=== PATIENT | male | born 1955 | race Caucasian/White ===

== ENCOUNTER 2018-03-24 17:51 | Emergency (ER) | payer BC, OTHER ==
[2018-03-24 18:31] VITALS: BP 102/74
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
[2018-03-24] MEDS ORDERED: IBUPROFEN 600 MG TABLET PO STA (19:42)
[2018-03-24] MEDS ORDERED: HYDROcod/ACET 5/325 Prepack 4 PO STA (19:42)
[2018-03-24] MEDS ORDERED: ACETAMINOPHEN 325 MG TABLET PO STA (19:42)
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
== END 2018-03-24 21:02 | disposition home or self-care (01) ==
LOC: ED 17:51
DX: S60.511A Abrasion of right hand, initial encounter (principal); S80.211A Abrasion, right knee, initial encounter; S42.034A Nondisplaced fracture of lateral end of right clavicle, initial encounter for closed fracture; S06.0X0A Concussion without loss of consciousness, initial encounter; V18.4XXA Pedal cycle driver injured in noncollision transport accident in traffic accident, initial encounter; Y93.55 Activity, bike riding; Y92.410 Unspecified street and highway as the place of occurrence of the external cause
CPT/HCPCS: 73030; 99283; 99284; A9270

== ENCOUNTER 2019-06-16 11:02 | Emergency (ER) | payer BC ==
[2019-06-16] MEDS ORDERED: KETOROLAC 60 MG/2 ML VIAL IM STA (11:57)
[2019-06-16] MEDS ORDERED: LIDOCAINE 1%-EPI 1:100000 20 ML MDV SUBQ STA (11:58)
--- NOTE | 2019-06-16 11:58 | XRAY Report ---
Reason: fall Procedure Date: 06/16/2019 Accession Number: [id number] / [id number] Procedure: XR - Hip w/Pelvis 2-3V LT CPT Code: FULL RESULT: EXAM: LEFT HIP RADIOGRAPHY EXAM DATE: 06/16/2019 11:41 AM. CLINICAL HISTORY: Fall. COMPARISON: None. TECHNIQUE: 2 views. FINDINGS: Bones: No fracture. No bone lesion. Joints: No dislocation. Preserved hip joint spaces. Lower lumbar spondylosis. Soft Tissues: Normal. No soft tissue swelling. IMPRESSION: No fracture or dislocation. Preserved hip joint space. RADIA
--- NOTE | 2019-06-16 12:56 | ED Physician Documentation ---
PD HPI UPPER EXT INJURY - Stated complaint Stated Complaint: LT ARM LAC - Chief complaint Chief Complaint: Laceration - History obtained from History obtained from: Patient - History of Present Illness Location: Left Type of injury: Fall (down 1 or 2 steps at home), Laceration, Other (also hit Left hip on the way down, reports hip pain) Where injury occurred: Home Timing - onset: How many hours ago (2), Today Timing - duration: Hours (2) Timing - details: Abrupt onset Severity Comments: moderate L hip pain Improved by: Rest Worsened by: Palpating Associated symptoms: No: Weakness, Numbness, Tingling, Swelling, Discolored Contributing factors: No: Anticoagulated, Prior ortho surgery, Prosthetic joint, Work related Similar symptoms before: Has not had sx before Recently seen: Not recently seen - Treatment prior to arrival Treatment prior to arrival: none Review of Systems Ten Systems: 10 systems reviewed and negative Constitutional: reports: Reviewed and negative Eyes: reports: Reviewed and negative Cardiac: reports: Reviewed and negative Respiratory: reports: Reviewed and negative GI: reports: Reviewed and negative : reports: Reviewed and negative Skin: reports: Laceration (s) Musculoskeletal: reports: Extremity pain, Joint pain, Pain with weight bearing. denies: Neck pain, Back pain, Extremity swelling, Joint swelling Neurologic: denies: Generalized weakness, Focal weakness, Numbness, Syncope, Seizure, Headache, Head injury, LOC Psychiatric: reports: Reviewed and negative Immunocompromised: reports: Reviewed and negative PD PAST MEDICAL HISTORY - Past Medical History Cardiovascular: None Respiratory: None Neuro: None Endocrine/Autoimmune: None - Past Surgical History Past Surgical History: Yes Cardiovascular: AICD - Present Medications Home Medications: Ambulatory Orders Medication Instructions Recorded Confirmed Carvedilol 04/27/16 Prednisone 5 mg 04/27/16 Sertraline [Zoloft] 75 mg 04/27/16 04/27/16 HYDROcod/ACETAM 5/325 [[place] 5/325] 1 tab PO Q6H PRN #15 tablet 03/24/18 Naproxen [Naprosyn] 500 mg PO BID PRN #20 tablet 03/24/18 Lidocaine Patch 5% [Lidoderm Patch] 1 patch TOP DAILY PRN #10 patch 06/16/19 - Allergies Allergies/Adverse Reactions: Allergies Allergy/AdvReac Type Severity Reaction Status Date / Time codeine Allergy Unknown Verified 06/16/19 11:06 - Social History Does the pt smoke?: No Smoking Status: Never smoker Does the pt drink ETOH?: No Does the pt have substance abuse?: No - Immunizations Immunizations are current?: Yes - POLST Patient has POLST: No PD ED PE NORMAL - Vitals Vital signs reviewed: Yes - General General: Alert and oriented X 3, No acute distress, Well developed/nourished - HEENT HEENT: Atraumatic, Moist mucous membranes - Neck Neck: Supple, no meningeal sign, No bony TTP, Other (full ROM without pain ) - Cardiac Cardiac: RRR - Respiratory Respiratory: No respiratory distress - Abdomen Abdomen: Soft, Non distended - Male Male : Deferred - Rectal Rectal: Deferred - Back Back: No CVA TTP, No spinal TTP - Derm Derm: Normal color, Warm and dry, No rash - Extremities Extremities: No deformity, No edema PD ED PE EXPANDED - Derm Derm: Laceration(s) (10cm laceration to the L ventral forearm, linear, hemostatic ) - Extremities Extremities: Tenderness (L hip). No: Deformity, Limited ROM, Swelling, Bruising, Abrasion Results - Vitals Vitals: Vital Signs - 24 hr 06/16/19 06/16/19 11:06 13:56 Temperature 37 C Heart Rate 69 62 Respiratory 15 18 Rate Blood Pressure 128/88 H 153/90 H O2 Saturation 99 100 Oxygen O2 Source Room air - Rads (name of study) Hip and pelvix xray, Left Radiology: Final report received, EMP read contemporaneously (negative ), See rad report Procedures - Laceration (location) Upper extremity left Ventral Length in cm: 10 Wound type: Linear Neurovascular status: Sensory intact, Motor intact, Vascular intact Tendon involvement: Tendon intact. No: Tendon Injury Wound Preparation: Irrigated copiously NS, Wound explored, Wound edges modified. No: FB identified Skin layer closure: Nylon, Size #-0 - enter number (4-0), Sutures - enter # (12) Other: Patient tolerated well, No complications, Neurovascular intact, Dressing applied, Tetanus UTD Complexity: Simple PD MEDICAL DECISION MAKING - ED course Complexity details: reviewed results, re-evaluated patient, considered differential, d/w patient, d/w family ED course: ddx- Hip contusion, pelvic fx, hip sprain, forearm laceration 64 y/o M with fall down 2 steps with L hip pain and a L forearm laceration. Pt not on blood thinners, is ambulatory and has full ROM of all extremities. L hip and pelvis xrays eng. L forearm laceration repaired as documented. pt given lidoderm patch for hip and L low back/buttock pain. He can continue NSAIDs prn for pain and is stable for discharge with suture removal in 14 days. Departure - Departure Disposition: 01 Home, Self Care Clinical Impression: Laceration of arm Qualifiers: Encounter type: initial encounter Laterality: left Qualified Code(s): S41.112A - Laceration without foreign body of left upper arm, initial encounter Contusion of left hip Qualifiers: Encounter type: initial encounter Qualified Code(s): S70.02XA - Contusion of left hip, initial encounter Condition: Stable Record reviewed to determine appropriate education?: Yes Instructions: ED Laceration Ext Sutr Stap Tape Follow-Up: Xavier Freeman MD [Primary Care Provider] - 06/30/19 (for suture removal in 14 days ) Prescriptions: Lidocaine Patch 5% [Lidoderm Patch] 1 patch TOP DAILY PRN #10 patch PRN Reason: pain Comments: Your L hip and pelvis xray was normal. You have a L forearm laceration which was repaired with sutures. Keep the wound clean with soap and water. Apply bacitracin or neosporin OTC ointment 2 times a day. Return for suture removal or follow up with your PCP for suture removal in 14 days. Return sooner if area is red, hot, or has discharge as these are signs of infection. Discharge Date/Time: 06/16/19 14:06
[2019-06-16] MEDS ORDERED: LIDOCAINE PATCH 5% TOP STA (13:45)
[2019-06-16 13:56] VITALS: BP 153/90
[2019-06-16] MEDS ORDERED: BACITRACIN ZINC OINT 14 GM TOP STA (13:59)
== END 2019-06-16 14:06 | disposition home or self-care (01) ==
LOC: ED 11:02
DX: S51.812A Laceration without foreign body of left forearm, initial encounter (principal); S70.02XA Contusion of left hip, initial encounter; W10.8XXA Fall (on) (from) other stairs and steps, initial encounter; Y93.01 Activity, walking, marching and hiking; Y92.009 Unspecified place in unspecified non-institutional (private) residence as the place of occurrence of the external cause
CPT/HCPCS: 12004; 73502; 96372; 99283; 99284; A9270